=== PATIENT | female | born 1950 | race Caucasian/White ===

== ENCOUNTER → 2016-06-16 | Outpatient (CLI) | payer MEDICARE, OTHER ==
[~2016-06-16] MED LIST: ED ZITHROM6 TAB/BOTT PO; GOOD NEIGHBOR325 MG PO; LISINOPRIL20 MG PO; NOVOLOG 100U100 U/M1 SQ; OMNICEF 300MG300 MG PO; RT ADVAIR 228 DISKUS IH; RT ALBUTEROL CC18 GM IH; ZOCOR20 MG PO
== END ==
LOC: LAB 09:44
DX: Z78.9 Other specified health status (principal)

== ENCOUNTER → 2016-12-09 | Outpatient (CLI) | payer MEDICARE, OTHER ==
[2013-01-24 21:15] VITALS: BP 136/74
== END ==
LOC: MAMMO 08:04
DX: Z12.31 Encounter for screening mammogram for malignant neoplasm of breast (principal)
CPT/HCPCS: G0202

== ENCOUNTER → 2017-07-07 | Outpatient (CLI) | payer MEDICARE, OTHER ==
[2013-01-24 21:15] VITALS: BP 136/74
== END ==
LOC: RAD 13:25
DX: M47.894 Other spondylosis, thoracic region (principal); M85.88 Other specified disorders of bone density and structure, other site; W19.XXXA Unspecified fall, initial encounter

== ENCOUNTER → 2017-10-09 | Outpatient (CLI) | payer MEDICARE ==
[2013-01-24 21:15] VITALS: BP 136/74
[2017-10-09 12:41] LABS: EOS # 0.3 (0.04-0.40); EOS % 5.2 % (1.0-5.0); HEMATOCRIT 39.5 % (37.0-47.0); HEMOGLOBIN 13.1 g/dL (12.5-16.0); LYMPH# 1.4 (1.50-4.00); MEAN CELL VOLUME 88 fl (78-100); MEAN CORPUSCULAR HEMOGLOBIN 29 pg (27-31); MEAN CORPUSCULAR HGB CONC 33 g/dL (33-37); MEAN PLATELET VOLUME 10.4 fl (7.4-10.4); MONO # 0.5 (0.20-0.80); NEU # 2.6 (1.40-6.50); PLATELET COUNT 304 K/mm3 (130-400); RED BLOOD COUNT 4.51 M/mm3 (4.10-5.30); RED CELL DISTRIBUTION WIDTH 12.8 % (11.5-14.5); WHITE BLOOD COUNT 4.8 K/mm3 (4.8-10.8)
[2017-10-09 12:45] LABS: ALBUMIN 3.8 g/dL (3.5-5.0); BUN/CREATININE RATIO 18.3 (6.0-26.0); CALCIUM 8.8 mg/dL (8.4-10.2); POTASSIUM 4.4 mmol/L (3.6-5.0); TOTAL BILIRUBIN 0.3 mg/dL (0.2-1.3); TOTAL PROTEIN 7.1 g/dL (6.3-8.2)
== END ==
LOC: LAB 12:20
PROVIDERS: Family Medicine
DX: R19.7 Diarrhea, unspecified (principal); R10.9 Unspecified abdominal pain

== ENCOUNTER → 2017-11-02 | Day surgery (SDC) | payer MEDICARE ==
[2013-01-24 21:15] VITALS: BP 136/74
== END | disposition home or self-care (01) ==
LOC: MSO 07:21
DX: Z12.11 Encounter for screening for malignant neoplasm of colon (principal); Z80.0 Family history of malignant neoplasm of digestive organs; J45.909 Unspecified asthma, uncomplicated; E10.9 Type 1 diabetes mellitus without complications; Z79.4 Long term (current) use of insulin; Z96.41 Presence of insulin pump (external) (internal); Z79.82 Long term (current) use of aspirin; Z79.899 Other long term (current) drug therapy; Z87.891 Personal history of nicotine dependence
CPT/HCPCS: G0105; 00812; J2704; J7030

== ENCOUNTER → 2017-12-10 | Outpatient (CLI) | payer MEDICARE, OTHER ==
[2013-01-24 21:15] VITALS: BP 136/74
== END ==
LOC: MAMMO 09:05
DX: Z12.31 Encounter for screening mammogram for malignant neoplasm of breast (principal)

== ENCOUNTER 2018-12-02 20:46 | Emergency (ER) | payer MEDICARE, OTHER ==
[2018-12-03] MEDS ORDERED: CEPHALEXIN500 M2 PO (00:48)
[2018-12-03] MEDS ORDERED: ULTRAM50 M1 PO (00:50)
[2018-12-03 01:00] VITALS: BP 107/64
== END 2018-12-03 01:00 | disposition home or self-care (01) ==
LOC: ED 20:46
DX: S51.811A Laceration without foreign body of right forearm, initial encounter (principal); M25.511 Pain in right shoulder; E10.9 Type 1 diabetes mellitus without complications; Z23 Encounter for immunization; Z87.891 Personal history of nicotine dependence; Z79.51 Long term (current) use of inhaled steroids; Z79.82 Long term (current) use of aspirin; W17.89XA Other fall from one level to another, initial encounter; Y92.009 Unspecified place in unspecified non-institutional (private) residence as the place of occurrence of the external cause
CPT/HCPCS: 90715; J1885

== ENCOUNTER → 2018-12-29 | Outpatient (CLI) | payer MEDICARE, OTHER ==
[2018-12-03 01:00] VITALS: BP 107/64
[~2018-12-29] MED LIST changes: +CEPHALEXIN500 M2 PO; +ULTRAM50 M1 PO
== END ==
LOC: MAMMO 12-28 13:00
DX: Z12.31 Encounter for screening mammogram for malignant neoplasm of breast (principal)

== ENCOUNTER → 2019-03-14 | Outpatient (CLI) | payer MEDICARE, OTHER | LOC: RAD 10:17 | DX: S92.355A Nondisplaced fracture of fifth metatarsal bone, left foot, initial encounter for closed fracture (principal) ==

== ENCOUNTER → 2019-03-21 | Outpatient (CLI) | payer MEDICARE, OTHER ==
[2019-03-21 09:57] LABS: D-DIMER 0.95 mg/L FEU (0.15-0.50)
== END ==
LOC: LAB 09:24 → RAD 09:24
PROVIDERS: Family Medicine
DX: M84.375A Stress fracture, left foot, initial encounter for fracture (principal); R79.89 Other specified abnormal findings of blood chemistry

== ENCOUNTER → 2019-12-22 | Outpatient (CLI) | payer MEDICARE, OTHER ==
[2019-12-22 09:55] LABS: EOS # 0.2 (0.04-0.40); HEMATOCRIT 35.1 % (37.0-47.0); HEMOGLOBIN 11.3 g/dL (12.5-16.0); LYMPH# 1.8 (1.50-4.00); MEAN CELL VOLUME 85 fl (78-100); MEAN CORPUSCULAR HEMOGLOBIN 27 pg (27-31); MEAN CORPUSCULAR HGB CONC 32 g/dL (33-37); MEAN PLATELET VOLUME 9.4 fl (7.4-10.4); MONO # 0.4 (0.20-0.80); NEU # 2.6 (1.40-6.50); PLATELET COUNT 307 K/mm3 (130-400); RED BLOOD COUNT 4.14 M/mm3 (4.10-5.30); RED CELL DISTRIBUTION WIDTH 12.8 % (11.5-14.5)
[2019-12-22 10:01] LABS: ALBUMIN 3.7 g/dL (3.4-4.8); POTASSIUM 4.2 mmol/L (3.5-5.1)
[2019-12-22 10:02] LABS: CALCIUM 8.9 mg/dL (8.3-10.5)
[2019-12-22 10:04] LABS: TOTAL PROTEIN 6.4 g/dL (6.2-8.1)
[2019-12-22 10:06] LABS: TOTAL BILIRUBIN 0.4 mg/dL (0.2-1.2)
== END ==
LOC: LAB 09:39
PROVIDERS: Physician Assistant
DX: Z00.00 Encounter for general adult medical examination without abnormal findings (principal); E78.5 Hyperlipidemia, unspecified; E10.9 Type 1 diabetes mellitus without complications; M81.0 Age-related osteoporosis without current pathological fracture

== ENCOUNTER → 2020-01-03 | Outpatient (CLI) | payer MEDICARE, OTHER | LOC: MAMMO 10:40 | DX: Z00.00 Encounter for general adult medical examination without abnormal findings (principal); Z12.31 Encounter for screening mammogram for malignant neoplasm of breast ==

== ENCOUNTER → 2020-12-25 | Outpatient (CLI) | payer MEDICARE ==
[2020-12-25 09:46] LABS: BASO # 0.01 (0.02-0.10); EOS # 0.21 (0.04-0.40); EOS % 4.8 % (1.0-5.0); HEMATOCRIT 35.4 % (37.0-47.0); HEMOGLOBIN 11.5 g/dL (12.5-16.0); LYMPH# 1.62 (1.50-4.00); MEAN CELL VOLUME 87 fl (78-100); MEAN CORPUSCULAR HEMOGLOBIN 28 pg (27-31); MEAN CORPUSCULAR HGB CONC 33 g/dL (33-37); MEAN PLATELET VOLUME 9.7 fl (7.4-10.4); MONO # 0.39 (0.20-0.80); NEU # 2.12 (1.40-6.50); PLATELET COUNT 237 K/mm3 (130-400); RED BLOOD COUNT 4.08 M/mm3 (4.10-5.30); RED CELL DISTRIBUTION WIDTH 12.9 % (11.5-14.5); WHITE BLOOD COUNT 4.4 K/mm3 (4.8-10.8)
[2020-12-25 09:50] LABS: POTASSIUM 4.3 mmol/L (3.5-5.1)
[2020-12-25 09:51] LABS: ALBUMIN 3.6 g/dL (3.4-4.8)
[2020-12-25 09:52] LABS: CALCIUM 9.4 mg/dL (8.3-10.5)
[2020-12-25 09:53] LABS: TOTAL PROTEIN 6.6 g/dL (6.2-8.1)
[2020-12-25 09:55] LABS: TOTAL BILIRUBIN 0.6 mg/dL (0.2-1.2)
== END ==
LOC: LAB 09:18
PROVIDERS: Physician Assistant
DX: Z13.29 Encounter for screening for other suspected endocrine disorder (principal); K90.9 Intestinal malabsorption, unspecified; E10.9 Type 1 diabetes mellitus without complications; E78.5 Hyperlipidemia, unspecified

== ENCOUNTER → 2021-01-08 | Outpatient (CLI) | payer MEDICARE | LOC: MAMMO 09:14 | DX: Z12.31 Encounter for screening mammogram for malignant neoplasm of breast (principal); Z13.820 Encounter for screening for osteoporosis ==

== ENCOUNTER → 2021-01-08 | Outpatient (CLI) | payer MEDICARE | LOC: RAD 09:17 → MAMMO 10:00 → RAD 10:00 | DX: M81.0 Age-related osteoporosis without current pathological fracture (principal); Z13.820 Encounter for screening for osteoporosis; M85.80 Other specified disorders of bone density and structure, unspecified site ==

== ENCOUNTER → 2021-01-12 | Outpatient (CLI) | payer MEDICARE | LOC: LAB 14:11 | DX: Z20.822 Contact with and (suspected) exposure to COVID-19 (principal) ==

== ENCOUNTER → 2021-03-27 | Outpatient (CLI) | payer MEDICARE | LOC: LAB 13:29 | DX: R05.9 Cough, unspecified (principal); Z20.822 Contact with and (suspected) exposure to COVID-19 ==

== ENCOUNTER → 2021-11-29 | Outpatient (CLI) | payer MEDICARE | LOC: AMSURD 14:58 | DX: R55 Syncope and collapse (principal) ==

== ENCOUNTER → 2021-12-31 | Outpatient (CLI) | payer MEDICARE ==
[2021-12-31 12:01] LABS: BASO # 0.01 K/mm3 (0.02-0.10); EOS # 0.23 K/mm3 (0.04-0.40); EOS % 5.3 % (1.0-5.0); HEMATOCRIT 38.6 % (37.0-47.0); HEMOGLOBIN 12.5 g/dL (12.5-16.0); LYMPH# 1.62 K/mm3 (1.50-4.00); MEAN CELL VOLUME 86 fl (78-100); MEAN CORPUSCULAR HEMOGLOBIN 28 pg (27-31); MEAN CORPUSCULAR HGB CONC 32 g/dL (33-37); MEAN PLATELET VOLUME 9.1 fl (7.4-10.4); MONO # 0.38 K/mm3 (0.20-0.80); PLATELET COUNT 264 K/mm3 (130-400); RED BLOOD COUNT 4.47 M/mm3 (4.10-5.30); WHITE BLOOD COUNT 4.4 K/mm3 (4.8-10.8)
[2021-12-31 12:08] LABS: ALBUMIN 3.9 g/dL (3.4-4.8); POTASSIUM 4.2 mmol/L (3.5-5.1)
[2021-12-31 12:09] LABS: CALCIUM 9.6 mg/dL (8.3-10.5)
[2021-12-31 12:13] LABS: TOTAL BILIRUBIN 0.6 mg/dL (0.2-1.2)
== END ==
LOC: LAB 11:50
PROVIDERS: Physician Assistant
DX: Z00.00 Encounter for general adult medical examination without abnormal findings (principal); Z13.820 Encounter for screening for osteoporosis; E78.5 Hyperlipidemia, unspecified; Z13.29 Encounter for screening for other suspected endocrine disorder; G47.00 Insomnia, unspecified; E10.9 Type 1 diabetes mellitus without complications; K90.9 Intestinal malabsorption, unspecified

== ENCOUNTER 2022-08-07 13:27 | Emergency (ER) | payer MEDICARE ==
[~2022-08-07] VITALS: Ht 154.9 cm; Wt 67.2 kg
[2022-08-07] MEDS ORDERED: METOPROLOL SUCC25 M1 PO (13:39)
[2022-08-07] MEDS ORDERED: vitamin d PO (13:40)
[2022-08-07 14:17] LABS: BASO # 0.01 K/mm3 (0.02-0.10); EOS # 0.07 K/mm3 (0.04-0.40); EOS % 1.5 % (1.0-5.0); HEMATOCRIT 38.5 % (37.0-47.0); HEMOGLOBIN 12.8 g/dL (12.5-16.0); LYMPH# 1.81 K/mm3 (1.50-4.00); MEAN CELL VOLUME 84 fl (78-100); MEAN CORPUSCULAR HEMOGLOBIN 28 pg (27-31); MEAN CORPUSCULAR HGB CONC 33 g/dL (33-37); MEAN PLATELET VOLUME 9.9 fl (7.4-10.4); MONO # 0.44 K/mm3 (0.20-0.80); NEU # 2.22 K/mm3 (1.40-6.50); PLATELET COUNT 263 K/mm3 (130-400); RED BLOOD COUNT 4.59 M/mm3 (4.10-5.30); RED CELL DISTRIBUTION WIDTH 12.1 % (11.5-14.5); WHITE BLOOD COUNT 4.6 K/mm3 (4.8-10.8)
[2022-08-07 14:30] LABS: ALBUMIN 3.9 g/dL (3.4-4.8)
[2022-08-07 14:31] LABS: POTASSIUM 3.6 mmol/L (3.5-5.1)
[2022-08-07 14:32] LABS: CALCIUM 9.3 mg/dL (8.3-10.5)
[2022-08-07 14:33] LABS: TOTAL PROTEIN 6.9 g/dL (6.2-8.1)
[2022-08-07 14:35] LABS: TOTAL BILIRUBIN 0.3 mg/dL (0.2-1.2)
[2022-08-07 15:47] LABS: URINE APPEARANCE CLEAR; URINE BILIRUBIN NEGATIVE (NEGATIVE); URINE BLOOD NEGATIVE (NEGATIVE); URINE COLOR YELLOW; URINE GLUCOSE NEGATIVE (NEGATIVE); URINE KETONE NEGATIVE (NEGATIVE); URINE LEUKOCYTE ESTERASE TRACE (NEGATIVE); URINE NITRATE NEGATIVE (NEGATIVE); URINE PROTEIN(semi-quant) TRACE (NEGATIVE); URINE UROBILINOGEN NORMAL (NORMAL); URINE WBC 0-1 /hpf (0-3)
[2022-08-07] MEDS ORDERED: PAXLOVID CO-PA1 EACH PO (16:42)
[2022-08-07] MEDS ORDERED: PREDNISONE20 MG PO (16:42)
[2022-08-07] MEDS ORDERED: ZOFRAN ODT4 MG PO (16:42)
[2022-08-07 17:21] VITALS: BP 183/80
== END 2022-08-07 16:52 | disposition home or self-care (01) ==
LOC: ED 13:27
PROVIDERS: Family Medicine
DX: U07.1 COVID-19 (principal); E10.9 Type 1 diabetes mellitus without complications; R11.2 Nausea with vomiting, unspecified; R09.89 Other specified symptoms and signs involving the circulatory and respiratory systems; J45.21 Mild intermittent asthma with (acute) exacerbation; Z88.8 Allergy status to other drugs, medicaments and biological substances
CPT/HCPCS: J2405; J7030

== ENCOUNTER → 2023-02-03 | Outpatient (CLI) | payer MEDICARE ==
[~2023-02-03] MED LIST changes: +METOPROLOL SUCC25 M1 PO; +PAXLOVID CO-PA1 EACH PO; +PREDNISONE20 MG PO; +ZOFRAN ODT4 MG PO; +vitamin d PO
== END ==
LOC: RAD 10:59 → MAMMO 11:15
DX: Z13.820 Encounter for screening for osteoporosis (principal); M81.0 Age-related osteoporosis without current pathological fracture

== ENCOUNTER → 2023-02-03 | Outpatient (CLI) | payer MEDICARE | LOC: MAMMO 10:45 | DX: Z12.31 Encounter for screening mammogram for malignant neoplasm of breast (principal) ==

== ENCOUNTER → 2023-11-06 | Outpatient (CLI) | payer MEDICARE ==
[2023-11-06 13:35] LABS: URINE APPEARANCE CLEAR (CLEAR); URINE BILIRUBIN NEGATIVE (NEGATIVE); URINE BLOOD 1+ (NEGATIVE); URINE COLOR YELLOW (YELLOW); URINE GLUCOSE NEGATIVE (NEGATIVE); URINE KETONE NEGATIVE (NEGATIVE); URINE LEUKOCYTE ESTERASE NEGATIVE (NEGATIVE); URINE NITRATE NEGATIVE (NEGATIVE); URINE PROTEIN(semi-quant) NEGATIVE (NEGATIVE); URINE WBC 0-1 /hpf (0-3)
== END ==
LOC: LAB 12:33
PROVIDERS: Nurse Practitioner Family
DX: R39.15 Urgency of urination (principal)

== ENCOUNTER → 2023-11-18 | Outpatient (CLI) | payer MEDICARE | LOC: LAB 08:22 | DX: N39.0 Urinary tract infection, site not specified (principal) ==

== ENCOUNTER → 2023-12-02 | Outpatient (CLI) | payer MEDICARE ==
[2023-12-02 08:02] LABS: URINE WBC 0 /hpf (0-3)
[2023-12-02 08:48] LABS: URINE APPEARANCE CLEAR (CLEAR); URINE BILIRUBIN NEGATIVE (NEGATIVE); URINE COLOR YELLOW (YELLOW); URINE GLUCOSE NEGATIVE (NEGATIVE); URINE KETONE TRACE (NEGATIVE); URINE PROTEIN(semi-quant) NEGATIVE (NEGATIVE)
[2023-12-02 08:49] LABS: URINE BLOOD NEGATIVE (NEGATIVE); URINE LEUKOCYTE ESTERASE NEGATIVE (NEGATIVE); URINE NITRATE NEGATIVE (NEGATIVE)
== END ==
LOC: LAB 07:58
PROVIDERS: Physician Assistant
DX: R30.0 Dysuria (principal)